=== PATIENT | female | born 1955 | race Caucasian/White ===

== ENCOUNTER 2016-12-10 13:59 | Emergency (ER) | payer BC, OTHER ==
[~2016-12-10] VITALS: Ht 170.2 cm; Wt 140.0 kg
[~2016-12-10 13:59] MED LIST: ALBU0.086 NEB; DOXY100T PO; LISI-363 PO; PRED20 PO; SYMB80AE INH; THYR15 PO; VENTAER INH; ZITH250T PO
[2016-12-10 14:03] VITALS: BP 109/75; PULSE 103; RESP 26; TEMP 98.8; O2SAT 95
[2016-12-10 14:10] VITALS: O2SAT 97
[2016-12-10] MEDS ORDERED: SODIUM CHLORIDE 0.9% FLUSH 10 ML FLUSH IVF PRN (14:15)
[2016-12-10] MEDS ORDERED: methylPREDNISolone SOD SUCC 125 MG/2 ML VIAL IVP ONE (14:15)
--- NOTE | 2016-12-10 14:18 | PD ---
HPI Chief Complaint: Respiratory Distress Time Seen by Provider: 14:16 Travel History International Travel<30 days: No Contact w/Intl Traveler<30days: No Traveled to known affect area: No History of Present Illness HPI 60-year-old female with history of COPD presents to the ED via EMS in respiratory distress. Patient states that she was at work and began to have a coughing fit. She states that she "got a little fuzzy." EMS reports that the patient was administering a breathing treatment on arrival O2 sats in the mid 90s. They applied CPAP, gave her 100 mg of Lasix en route. Patient endorses chronic productive cough times "months." She also states that she is has chronic edema in the lower legs which is relieved by elevating the legs at night. Endorses occasional chills over the last week or so. She denies palpitations, nausea or vomiting, dysuria. PFSH Past Medical History Hx Anticoagulant Therapy: Yes (ASA 81) Asthma: Yes COPD: Yes Diminished Hearing: No Hypertension: Yes Respiratory: Yes (COPD, ASTHMA) Thyroid Disease: Yes (HYPO) Tetanus Vaccination: Unknown Influenza Vaccination: No ?: Not Past Surgical History Section: Yes Hysterectomy: Yes (PARTIAL) Other Surgery: Yes (TRACHEOSTOMY A CHILD) Social History Alcohol Use: No Tobacco Use: No Substance Use: No Allergies-Medications (Allergen,Severity, Reaction): Coded Allergies: Demerol (Verified Allergy, Severe, Shortness of Breath, 09/08/15) Hydrocodone (Verified Allergy, Severe, ITCH, 09/08/15) Levaquin (Verified Allergy, Severe, 09/08/15) Penicillin (Verified Allergy, Severe, ANAPHYLATIC, 09/08/15) Reported Meds & Prescriptions Reported Meds & Active Scripts Active Prednisone 20 Mg Tab 40 Mg PO DAILY Take 40 mg (2 tablets) daily for 5 days Azithromycin 250 Mg Tab 250 Mg PO DIRECTED Take 2 tabs (500 mg) on day 1 then 1 tab daily x 4 days. Zithromax Z-Christopher (Azithromycin) 250 Mg Tab 250 Mg PO DIRECTED 500 MG (2 TABLETS) PO ON DAY 1, THEN 250 MG (1 TABLET) PO ON DAYS 2 TO 5. Proventil Ud 0.083% (2.5 Mg/3 Ml) (Albuterol Sulfate) 2.5 Mg/3 Ml Inha 2.5 Mg NEB Q4HR NEB Ventolin Hfa (Albuterol Sulfate) 18 Gm Aero 2 Puff INH Q4 * SHAKE WELL BEFORE USE * Deltasone 20 Mg Tab (Prednisone) 20 Mg Tab 40 Mg PO DAILY 5 Days Reported Deltasone 20 Mg Tab (Prednisone) 20 Mg Tab 20 Mg PO DIRECTED [place] Thyroid (Thyroid) 15 Mg Tab Unknown Dose PO DAILY Lisinopril 20 mg (Lisinopril) 20 Mg Tab 1 Tab PO DAILY Doxycycline Hyclate 100 mg (Doxycycline Hyclate) 100 Mg Tab 100 Mg PO BID Ventolin Hfa (Albuterol Sulfate) 18 Gm Aero 1 Puff INH Q6 * SHAKE WELL BEFORE USE * Symbicort (Budesonide/Formoterol Fumarate) 80 Mcg/4.5 Mcg Aer 1 Puff INH BID * SHAKE WELL BEFORE USE * Review of Systems Except as stated in HPI: all other systems reviewed are Neg Physical Exam Narrative GENERAL: Well-nourished, well-developed obese white female, on CPAP, in no acute distress. SKIN: Focused skin assessment warm, diaphoretic. HEAD: Normocephalic. EYES: No scleral icterus. No injection or drainage. NECK: Supple, trachea midline. No JVD or lymphadenopathy. CARDIOVASCULAR: Regular rate and rhythm without murmurs, gallops, or rubs. RESPIRATORY: Breath sounds equal bilaterally, diffuse wheezing in all lung gutierrez. + accessory muscle use. GASTROINTESTINAL: Abdomen soft, protuberant, non-tender, nondistended. MUSCULOSKELETAL: No cyanosis, 2+ edema bilateral lower extremities. BACK: Nontender without obvious deformity. No CVA tenderness. Data Data Last Documented VS Vital Signs Date Time Temp Pulse Resp B/P Pulse Ox O2 Delivery O2 Flow Rate FiO2 12/10/16 15:44 93 22 168/93 93 Nasal Cannula 12/10/16 14:10 2 12/10/16 14:03 98.8 Orders Complete Blood Count With Diff (12/10/16 14:07) Comprehensive Metabolic Panel (12/10/16 14:07) B-Type Natriuretic Peptide (12/10/16 14:07) D-Dimer (12/10/16 14:07) Act Partial Throm Time (Ptt) (12/10/16 14:07) Prothrombin Time / Inr (Pt) (12/10/16 14:07) Ckmb (Isoenzyme) Profile (12/10/16 14:07) Troponin I (12/10/16 14:07) Urinalysis - C+S If Indicated (12/10/16 14:07) Iv Access Insert/Monitor (12/10/16 14:07) Electrocardiogram (12/10/16 14:07) Ecg Monitoring (12/10/16 14:07) Oximetry (12/10/16 14:07) Oxygen Administration (12/10/16 14:07) Chest, Single Ap (12/10/16 14:07) Sodium Chloride 0.9% Flush (Ns Flush) (12/10/16 14:15) Methylprednisolone So Succ Inj (Solumedr (12/10/16 14:15) Albuterol-Ipratropium Neb (Duoneb Neb) (12/10/16 14:15) Ct Pulmonary Angiogram (12/10/16 15:38) Iohexol 350 Inj (Omnipaque 350 Inj) (12/10/16 16:26) Labs Laboratory Tests Test 12/10/16 14:20 White Blood Count 6.7 TH/MM3 Red Blood Count 4.80 MIL/MM3 Hemoglobin 13.5 GM/DL Hematocrit 41.8 % Mean Corpuscular Volume 87.3 FL Mean Corpuscular Hemoglobin 28.2 PG Mean Corpuscular Hemoglobin 32.4 % Concent Red Cell Distribution Width 15.1 % Platelet Count 255 TH/MM3 Mean Platelet Volume 7.8 FL Neutrophils (%) (Auto) 66.2 % Lymphocytes (%) (Auto) 24.0 % Monocytes (%) (Auto) 7.1 % Eosinophils (%) (Auto) 2.4 % Basophils (%) (Auto) 0.3 % Neutrophils # (Auto) 4.4 TH/MM3 Lymphocytes # (Auto) 1.6 TH/MM3 Monocytes # (Auto) 0.5 TH/MM3 Eosinophils # (Auto) 0.2 TH/MM3 Basophils # (Auto) 0.0 TH/MM3 CBC Comment DIFF FINAL Differential Comment Prothrombin Time 10.0 SEC Prothromb Time International 0.9 RATIO Ratio Activated Partial 25.1 SEC Thromboplast Time D-Dimer Quantitative (PE/DVT) 0.82 MG/L FEU Urine Color YELLOW Urine Turbidity CLEAR Urine pH 5.0 Urine Specific [place] 1.018 Urine Protein NEG mg/dL Urine Glucose (UA) NEG mg/dL Urine Ketones NEG mg/dL Urine Occult Blood NEG Urine Nitrite NEG Urine Bilirubin NEG Urine Urobilinogen LESS THAN 2.0 MG/DL Urine Leukocyte Esterase NEG Urine WBC 1 /hpf Urine Hyaline Casts 1 /lpf Urine Granular Casts 5 /lpf Urine Mucus FEW /lpf Microscopic Urinalysis Comment CULT NOT INDICATED Sodium Level 139 MEQ/L Potassium Level 3.9 MEQ/L Chloride Level 103 MEQ/L Carbon Dioxide Level 27.3 MEQ/L Anion Gap 9 MEQ/L Blood Urea Nitrogen 31 MG/DL Creatinine 1.15 MG/DL Estimat Glomerular Filtration 48 ML/MIN Rate Random Glucose 85 MG/DL Calcium Level 9.5 MG/DL Total Bilirubin 0.3 MG/DL Aspartate Amino Transf 19 U/L (AST/SGOT) Alanine Aminotransferase 29 U/L (ALT/SGPT) Alkaline Phosphatase 103 U/L Total Creatine Kinase 85 U/L Troponin I LESS THAN 0.02 NG/ML B-Type Natriuretic Peptide 26 PG/ML Total Protein 7.8 GM/DL Albumin 3.8 GM/DL [facility] Medical Decision Making Medical Screen Exam Complete: Yes Emergency Medical Condition: Yes Differential Diagnosis COPD exacerbation versus CHF versus pneumonia versus ACS versus PE versus other Narrative Course 60-year-old female with history of COPD presents to the ED via EMS in respiratory distress. Patient states that she was at work and began to have a coughing fit. EMS reports that the patient was administering a breathing treatment on arrival O2 sats in the mid 90s. They applied CPAP, gave her 100 mg of Lasix en route. Patient endorses chronic productive cough times "months. " She also states that she is has chronic edema in the lower legs which is relieved by elevating the legs at night. Vitals reviewed Patient is tachycardic , rate 103, respiratory rate 26 on presentation. O2 sats 90 and above. Physical exam reveals an obese, diaphoretic white female in no acute distress. There are diffuse wheezes in all lung gutierrez. Pitting edema in bilateral lower extremities, Homans sign negative bilaterally. Patient was administered IV dexamethasone, 2 nebs 3. EKG rate 89, sinus rhythm, OH interval 167, QRS 109, QTc 382. Normal axis. Possible old inferior NV, no acute ST changes, reviewed by Dr. Velasco. CXR: Negative for acute cardiopulmonary process. Cardiac enzymes: Negative 1. CTA: Negative for PE. CBC reveals no leukocytosis or anemia. INR 0.9. D-dimer 0.82. CMP shows BUN of 31 with creatinine of 1.15. On recheck the patient reports improvement of her breathing symptoms. She is no longer requiring oxygen by nasal cannula. COPD exacerbation. Patient was prescribed course of azithromycin and prednisone. She is instructed to resume her at-home medications, follow up with her primary care provider on Tuesday. She indicated understanding of instructions and is agreeable care plan. This patient is stable and discharged home. Diagnosis Primary Impression: COPD exacerbation Referrals: Primary Care Physician Patient Instructions: COPD (Chronic Obstructive Pulmonary Disease) (ED), General Instructions, Nutrition Guidelines for People with COPD (ED) Additional Instructions: Rest, hydrate. Take antibiotics and steroids as prescribed. Resume your normal at-home medications. Follow-up with your primary care provider on Tuesday as discussed. Return to the ED for any urgent or emergent medical condition. Med/Other Pt SpecificInfo: Prescription(s) given Scripts Prednisone 20 Mg Tab40 Mg PO DAILY #10 TAB Ref 0 Take 40 mg (2 tablets) daily for 5 days Prov:Sofia Velasco MD 12/10/16 Azithromycin 250 Mg [id number] Mg PO DIRECTED #6 TAB Ref 0 Take 2 tabs (500 mg) on day 1 then 1 tab daily x 4 days. Prov:Sofia Velasco MD 12/10/16 Disposition: 01 DISCHARGE HOME Condition: Stable [place] Dec 10, 2016 14:18
[2016-12-10] MEDS: RESP: ALBUTEROL 2.5 MG/IPRATROPIUM 0.5 MG NEB (SCH) INH ×2 (14:20→14:21)
--- NOTE | 2016-12-10 14:58 | RADRPT ---
EXAM DATE/TIME: 12/10/2016 14:24 [facility] COMPARISON: CHEST SINGLE AP, September 08, 2015, 17:03. INDICATIONS : Short of breath. MEDICAL HISTORY : Chronic obstructive pulmonary disease. SURGICAL HISTORY : None. ENCOUNTER: Initial ACUITY: 1 day PAIN SCORE: 0/10 LOCATION: Bilateral chest FINDINGS: 2 AP views of the chest demonstrate a normal-sized cardiac silhouette. There is a linear opacity at t he left lung base. No effusion, consolidation, or pneumothorax is visualized. Bones and soft tissues demonstrate no acute finding. CONCLUSION: No acute cardiopulmonary abnormality is identified. Adam Arellano MD on December 10, 2016 at 14:55 Board Certified Radiologist. This report was verified electronically.
[2016-12-10 15:08] LABS: AUTOMATED NEUTROPHIL # 4.4 TH/MM3 (1.8-7.7); BASOPHIL % 0.3 % (0.0-2.0); EOSINOPHIL # 0.2 TH/MM3 (0-0.4); EOSINOPHIL % 2.4 % (0.0-4.0); HEMATOCRIT 41.8 % (35.0-46.0); HEMO FLAGS DIFF FINAL; LYMPHOCYTE # 1.6 TH/MM3 (1.0-4.8); MEAN CELL VOLUME 87.3 FL (80.0-100.0); MEAN CORPUSCULAR HEMOGLOBIN 28.2 PG (27.0-34.0); MEAN CORPUSCULAR HGB CONC 32.4 % (32.0-36.0); MONO % 7.1 % (0.0-8.0); NEUT % 66.2 % (16.0-70.0); PLATELET COUNT 255 TH/MM3 (150-450); RED CELL DISTRIBUTION WIDTH 15.1 % (11.6-17.2); WHITE BLOOD COUNT 6.7 TH/MM3 (4.0-11.0)
[2016-12-10 15:18] LABS: BLOOD, URINE NEG (NEG); COMMENT (UR) CULT NOT INDICATED; CULTURE IF INDICATED CULT NOT INDICATED; GLUCOSE,URINE NEG (NEG); GRANULAR CAST, URINE 5 /lpf; HYALINE CAST, URINE 1 /lpf (RARE); KETONE, URINE NEG (NEG); MUCUS URINE FEW /lpf (OCC); NITRITE,URINE NEG (NEG); URINE COLOR YELLOW (YELLW/STRAW)
[2016-12-10 15:21] LABS: APTT (PATIENT) 25.1 SEC (24.3-30.1); INTERNATIONAL NORMALIZED RATIO 0.9 RATIO
[2016-12-10 15:33] LABS: ALT (GPT) 29 U/L (10-53); ANION GAP 9 MEQ/L (5-15); AST (GOT) 19 U/L (15-37); BICARBONATE 27.3 MEQ/L (21.0-32.0); BLOOD UREA NITROGEN 31 MG/DL (7-18); CHLORIDE 103 MEQ/L (98-107); GLOMERULAR FILTRATION RATE 48 ML/MIN (>89); POTASSIUM 3.9 MEQ/L (3.5-5.1); SODIUM (NA) 139 MEQ/L (136-145)
[2016-12-10 15:36] LABS: ALKALINE PHOSPHATASE 103 U/L (45-117); TOTAL BILIRUBIN ADULT 0.3 MG/DL (0.2-1.0)
[2016-12-10 15:44] VITALS: BP 168/93; PULSE 93; RESP 22; O2SAT 93
[2016-12-10 15:45] LABS: CREATINE KINASE 85 U/L (26-192)
[2016-12-10] MEDS ORDERED: IOHEXOL 350 MG/ML 10 ML VIAL (for RAD DIAG) IV ONE (16:26)
--- NOTE | 2016-12-10 16:39 | RADRPT ---
EXAM DATE/TIME: 12/10/2016 16:16 [facility] COMPARISON: No previous studies available for comparison. INDICATIONS : Cough and shortness of breath.Spasams under left ribs. IV CONTRAST: 76 cc Omnipaque 350 (iohexol) IV RADIATION DOSE: 23.43 CTDIvol (mGy) MEDICAL HISTORY : Hypothyroidism. Hypertension. Cardiovascular disease SURGICAL HISTORY : Hysterectomy. Trach as a child. ENCOUNTER: Initial ACUITY: 1 day PAIN SCALE: 0/10 LOCATION: chest TECHNIQUE: Volumetric scanning of the chest was performed using a pulmonary embolism protocol MIP images were re constructed. Using automated exposure control and adjustment of the mA and/or kV according to patien t size, radiation dose was kept as low as reasonably achievable to obtain optimal diagnostic quality images. DICOM format image data is available electronically for review and comparison. Follow-up recommendations for incidentally detected pulmonary nodules are based at a minimum on nodul e size and patient risk factors according to Fleischner Society Guidelines. FINDINGS: PULMONARY ARTERIES: No filling defects are seen in the pulmonary arteries through the segmental level. LUNGS: Minimal lingular atelectasis or scarring. PLEURAE: There is no pleural thickening or pleural effusion. MEDIASTINUM: There is good visualization of the great vessels of the middle mediastinum. No evidence of mediastin al or hilar adenopathy/mass. Left vertebral artery arises directly from the aortic arch as a variant of normal MUSCULOSKELETAL: Within normal limits for patient age. MISCELLANEOUS: The visualized upper abdominal organs demonstrate no acute abnormality. CONCLUSION: No evidence of pulmonary embolism Adam Riggs MD on December 10, 2016 at 16:34 Board Certified Radiologist. This report was verified electronically.
[2016-12-10] MEDS ORDERED: AZIT250T3 PO (16:43)
[2016-12-10] MEDS ORDERED: PRED20 PO (16:43)
--- NOTE | 2016-12-11 12:11 | EKG ---
Date Performed: 12/10/2016 Time Performed: 14:12:15 PTAGE: 60 years EKG: Sinus rhythm POSSIBLE RIGHT VENTRICULAR CONDUCTION DELAY BORDERLINE ECG PREVIOUS TRACING : 09/08/2015 17.26.46 DOCTOR: Velasquez Saunders Interpretating Date/Time 12/11/2016 12:08:50
== END 2016-12-10 17:03 | disposition home or self-care (01) ==
LOC: NEPE 13:59
DX: J44.1 Chronic obstructive pulmonary disease with (acute) exacerbation (principal); Z88.0 Allergy status to penicillin; I10 Essential (primary) hypertension; E03.9 Hypothyroidism, unspecified; J45.909 Unspecified asthma, uncomplicated; Z79.82 Long term (current) use of aspirin
CPT/HCPCS: 71010; 71275; 80053; 81001; 82550; 83880; 84484; 85025; 85379; 85610; 85730; 93005; 94640; 94664; 96374; 99285; J2930; Q9967